=== PATIENT | female | born 1980 | race American Indian/Alaskan Native ===

== ENCOUNTER 2021-03-11 16:38 | Emergency (ER) | payer SELFPAY ==
[2021-03-11 17:27] VITALS: BP 160/83
--- NOTE | 2021-03-11 17:45 | Emergency Department Report ---
ED General Adult HPI - General Chief complaint: Extremity Problem,Nontraumatic Stated complaint: BACK AND KNEE PAIN Time Seen by Provider: 03/11/21 17:35 Source: patient Mode of arrival: Ambulatory Limitations: No Limitations - History of Present Illness Initial comments: Patient is 40 years old female, morbidly obese with a BMI of 67.4. Patient presented to the ER complaining of bilateral knee pain and lower back pain. Patient stated that she started walking to reduce her weight. Patient stated that she experienced pain mostly after she finished walking. Patient denied any recent injury. No focal weakness numbness or tingling sensation. No bowel or bladder incontinence. Patient denied any chest pain or shortness of breath. - Related Data Allergies Allergy/AdvReac Type Severity Reaction Status Date / Time ibuprofen Allergy Unknown Verified 03/11/21 17:23 Penicillins Allergy Unknown Verified 03/11/21 17:23 sulfamethoxazole Allergy Unknown Verified 03/11/21 17:23 [From Bactrim] trimethoprim [From Bactrim] Allergy Unknown Verified 03/11/21 17:23 ED Review of Systems ROS: Stated complaint: BACK AND KNEE PAIN Other details as noted in HPI Comment: All other systems reviewed and negative Constitutional: denies: chills, fever Respiratory: denies: cough, shortness of breath, SOB with exertion, SOB at rest Cardiovascular: denies: chest pain, palpitations Gastrointestinal: denies: abdominal pain, nausea, vomiting Musculoskeletal: back pain, arthralgia, myalgia Neurological: denies: headache, weakness, numbness, paresthesias, confusion, abnormal gait ED Past Medical Hx - Past Medical History Previous Medical History?: Yes Hx Hypertension: Yes Hx Congestive Heart Failure: Yes Hx Asthma: Yes - Surgical History Past Surgical History?: No ED Physical Exam - General Limitations: No Limitations General appearance: alert, in no apparent distress - Head Head exam: Present: atraumatic, normocephalic, normal inspection - Eye Eye exam: Present: normal appearance, PERRL - ENT ENT exam: Present: normal exam, normal orophraynx, mucous membranes moist - Neck Neck exam: Present: normal inspection, full ROM. Absent: tenderness, meningismus - Respiratory Respiratory exam: Present: normal lung sounds bilaterally - Cardiovascular Cardiovascular Exam: Present: regular rate, normal rhythm, normal heart sounds - GI/Abdominal GI/Abdominal exam: Present: soft, normal bowel sounds. Absent: distended, tenderness, guarding, rebound, rigid, organomegaly, mass, bruit, pulsatile mass, hernia - Extremities Exam Extremities exam: Present: normal inspection, full ROM, normal capillary refill. Absent: pedal edema, calf tenderness - Back Exam Back exam: Present: normal inspection, full ROM. Absent: CVA tenderness (R), CVA tenderness (L) - Neurological Exam Neurological exam: Present: alert, oriented X3, CN II-XII intact, normal gait, reflexes normal. Absent: motor sensory deficit - Psychiatric Psychiatric exam: Present: normal mood - Skin Skin exam: Present: warm, intact, normal color ED Course Vital Signs 03/11/21 17:25 Temperature 98 F Pulse Rate 112 H Respiratory 16 Rate Blood Pressure 160/83 [Left] O2 Sat by Pulse 100 Oximetry ED Medical Decision Making - Medical Decision Making Patient is 40 years old female, morbidly obese with a BMI of 67.4. Patient presented to the ER complaining of bilateral knee pain and lower back pain. Patient stated that she started walking to reduce her weight. Patient stated that she experienced pain mostly after she finished walking. Patient denied any recent injury. No focal weakness numbness or tingling sensation. No bowel or bladder incontinence. Patient denied any chest pain or shortness of breath. Patient symptoms going well with osteoarthritis. I counseled the patient about not walking for long distance and started gradually and then increase your distance. I also advised her about swimming. Patient given prescription for Ultram and Zofran and advised to follow-up with her primary care physician in the next 2 to 3 days and to return to the ER if she develop any new symptoms. Critical care attestation.: If time is entered above; I have spent that time in minutes in the direct care of this critically ill patient, excluding procedure time. ED Disposition Clinical Impression: Acute bilateral knee pain, Exacerbation of osteoarthritis Disposition: 01 HOME / SELF CARE / HOMELESS Is pt being admited?: No Condition: Stable Instructions: Acute Knee Pain, Adult, Arthritis, [id number] Referrals: PRIMARY CARE, [Referring] - 3-5 Days Forms: Work/School Release Form(ED)
== END 2021-03-11 19:02 | disposition home or self-care (01) ==
LOC: ED 16:38
DX: M19.90 Unspecified osteoarthritis, unspecified site (principal); I11.0 Hypertensive heart disease with heart failure; I50.9 Heart failure, unspecified; J45.909 Unspecified asthma, uncomplicated
CPT/HCPCS: 99282

== ENCOUNTER 2021-04-25 12:52 | Emergency (ER) | payer SELFPAY ==
[2021-04-25 13:05] VITALS: BP 152/81
--- NOTE | 2021-04-25 13:12 | Emergency Department Report ---
- General Chief Complaint: Upper Respiratory Infection Stated Complaint: DRY COUGH, ARTHRITIS Time Seen by Provider: 04/25/21 13:05 Source: patient Mode of arrival: Ambulatory Limitations: No Limitations - History of Present Illness Initial Comments: Patient is a 40-year-old female presents emergency room complaints of a cough that began 4 to 5 days ago. She has associated yellow mucus production. She states that she has been taking Robitussin and cough drops without much relief. She states that she gets pain in her sides after frequent coughing. She states that occasionally she has an episode of posttussive emesis but otherwise has no vomiting. She denies any diarrhea, fever, leg swelling, hemoptysis, shortness of breath. Past medical history of asthma, bronchitis, CHF. Allergy to ibuprofen, penicillin, Bactrim. She is a non-smoker. She denies any recent travel or known sick contacts. She has not been vaccinated for COVID-19. - Related Data Previous Rx's Medication Instructions Recorded Last Taken Type Ondansetron [Zofran Odt] 4 mg PO Q8HR PRN #14 tab.rapdis 03/11/21 Unknown Rx traMADoL [Ultram 50 MG tab] 50 mg PO Q4HR PRN #14 tablet 03/11/21 Unknown Rx Albuterol Sulfate [Proventil Hfa] 1 puff IH TID PRN #1 hfa.aer.ad 04/25/21 Unknown Rx Benzonatate [Tessalon Perles] 100 mg PO Q8HR PRN #12 capsule 04/25/21 Unknown Rx guaiFENesin ER [Mucinex ER] 600 mg PO Q12H 7 Days #14 tablet.er 04/25/21 Unknown Rx predniSONE [Deltasone] 40 mg PO QDAY 5 Days #10 tab 04/25/21 Unknown Rx Allergies Allergy/AdvReac Type Severity Reaction Status Date / Time ibuprofen Allergy Unknown Verified 04/25/21 13:05 Penicillins Allergy Unknown Verified 04/25/21 13:05 sulfamethoxazole Allergy Unknown Verified 04/25/21 13:05 [From Bactrim] trimethoprim [From Bactrim] Allergy Unknown Verified 04/25/21 13:05 ED Review of Systems ROS: Stated complaint: DRY COUGH, ARTHRITIS Other details as noted in HPI Comment: All other systems reviewed and negative ED Past Medical Hx - Past Medical History Hx Hypertension: Yes Hx Congestive Heart Failure: Yes Hx Asthma: Yes - Medications Home Medications: Home Medications Medication Instructions Recorded Confirmed Last Taken Type Ondansetron [Zofran Odt] 4 mg PO Q8HR PRN #14 tab.rapdis 03/11/21 Unknown Rx traMADoL [Ultram 50 MG tab] 50 mg PO Q4HR PRN #14 tablet 03/11/21 Unknown Rx Albuterol Sulfate [Proventil Hfa] 1 puff IH TID PRN #1 hfa.aer.ad 04/25/21 Unknown Rx Benzonatate [Tessalon Perles] 100 mg PO Q8HR PRN #12 capsule 04/25/21 Unknown Rx guaiFENesin ER [Mucinex ER] 600 mg PO Q12H 7 Days #14 tablet.er 04/25/21 Unknown Rx predniSONE [Deltasone] 40 mg PO QDAY 5 Days #10 tab 04/25/21 Unknown Rx ED Physical Exam - General Limitations: No Limitations General appearance: alert, in no apparent distress - Head Head exam: Present: atraumatic, normocephalic - Eye Eye exam: Present: normal appearance - ENT ENT exam: Present: mucous membranes moist - Respiratory Respiratory exam: Present: normal lung sounds bilaterally. Absent: respiratory distress, wheezes, rales, rhonchi, stridor, chest wall tenderness, accessory muscle use, decreased breath sounds, prolonged expiratory - Cardiovascular Cardiovascular Exam: Present: regular rate, normal rhythm, normal heart sounds. Absent: systolic murmur, diastolic murmur, rubs, gallop - Neurological Exam Neurological exam: Present: alert, oriented X3 - Psychiatric Psychiatric exam: Present: normal affect, normal mood - Skin Skin exam: Present: warm, dry, intact ED Course Vital Signs 04/25/21 13:05 Temperature 98.9 F Pulse Rate 92 H Respiratory 18 Rate Blood Pressure 152/81 [Left] O2 Sat by Pulse 99 Oximetry ED Medical Decision Making - Radiology Data Radiology results: report reviewed Ordering Physician: TEN ROSS Date of Service: 04/25/21 Procedure(s): XR chest routine 2V Accession Number(s): [id number] cc: TEN ROSS Fluoro Time In Minutes: CHEST 2 VIEWS INDICATION / CLINICAL INFORMATION: cough with mucus production. COMPARISON: None available. FINDINGS: SUPPORT DEVICES: None. HEART / MEDIASTINUM: No significant abnormality. LUNGS / PLEURA: No significant pulmonary or pleural abnormality. No pneumothorax. ADDITIONAL FINDINGS: No significant additional findings. IMPRESSION: 1. No acute findings. Signer Name: Raffi Luu MD Signed: 04/25/2021 1:57 PM Workstation Name: [id number] Transcribed By: Dictated By: Raffi Luu MD Electronically Authenticated By: Raffi Luu MD Signed Date/Time: 04/25/211356 DD/ 56 TD/TT: Print - Medical Decision Making Patient is a 40-year-old female presents emergency room complaints of a cough that began 4 to 5 days ago. She has associated yellow mucus production. She states that she has been taking Robitussin and cough drops without much relief. She states that she gets pain in her sides after frequent coughing. She states that occasionally she has an episode of posttussive emesis but otherwise has no vomiting. She denies any diarrhea, fever, leg swelling, hemoptysis, shortness of breath. Past medical history of asthma, bronchitis, CHF. Allergy to ibuprofen, penicillin, Bactrim. She is a non-smoker. She denies any recent travel or known sick contacts. She has not been vaccinated for COVID-19. Vitals are stable. Breath sounds are clear bilaterally, no wheezing, no rales, no rhonchi. Chest x-ray 1. No acute findings. Symptoms could be related to acute bronchitis versus URI. Patient given prescription for medication. Advised patientPlease take medication as prescribed. Increase your fluid intake. Follow-up with your primary care doctor. Return to emergency room immediately for any new or worsening symptoms. Discussed with patient to get outpatient COVID-19 testing and if positive self quarantine for 10 days from onset of symptoms. Critical care attestation.: If time is entered above; I have spent that time in minutes in the direct care of this critically ill patient, excluding procedure time. ED Disposition Clinical Impression: Acute bronchitis Qualifiers: Bronchitis organism: unspecified organism Qualified Code(s): J20.9 - Acute bronchitis, unspecified Disposition: 01 HOME / SELF CARE / HOMELESS Is pt being admited?: No Does the pt Need Aspirin: No Condition: Stable Instructions: Acute Bronchitis, Adult, [id number], Acute Bronchitis (ED) Additional Instructions: Please take medication as prescribed. Increase your fluid intake. Follow-up with your primary care doctor. Return to emergency room immediately for any new or worsening symptoms. Prescriptions: predniSONE [Deltasone] 40 mg PO QDAY 5 Days #10 tab guaiFENesin ER [Mucinex ER] 600 mg PO Q12H 7 Days #14 tablet.er Albuterol Sulfate [Proventil Hfa] 1 puff IH TID PRN #1 hfa.aer.ad PRN Reason: shortness of breath/wheezing Benzonatate [Tessalon Perles] 100 mg PO Q8HR PRN #12 capsule PRN Reason: cough Referrals: SANDRA PETTIT MD [Staff Physician] - 2-3 Days [facility] [Provider Group] - 2-3 Days Forms: Work/School Release Form(ED) Time of Disposition: 14:25 Print Language: [place]
--- NOTE | 2021-04-25 14:02 | XRay Report ---
CHEST 2 VIEWS INDICATION / CLINICAL INFORMATION: cough with mucus production. COMPARISON: None available. FINDINGS: SUPPORT DEVICES: None. HEART / MEDIASTINUM: No significant abnormality. LUNGS / PLEURA: No significant pulmonary or pleural abnormality. No pneumothorax. ADDITIONAL FINDINGS: No significant additional findings. IMPRESSION: 1. No acute findings. Signer Name: Raffi Luu MD Signed: 04/25/2021 1:57 PM Workstation Name: [id number]
== END 2021-04-25 15:17 | disposition home or self-care (01) ==
LOC: ED 12:52
DX: J20.9 Acute bronchitis, unspecified (principal); I11.0 Hypertensive heart disease with heart failure; I50.9 Heart failure, unspecified; J45.909 Unspecified asthma, uncomplicated
CPT/HCPCS: 71046; 99283

== ENCOUNTER 2021-05-13 14:54 | Emergency (ER) | payer SELFPAY ==
[2021-05-13 15:11] VITALS: BP 147/93
[2021-05-13] MEDS ORDERED: HYDROcodone/ACETAMINOPHEN 5-325 MG TAB PO ONE (15:31)
[2021-05-13] MEDS ORDERED: ONDANSETRON 4 MG ODT TAB PO ONE (15:31)
--- NOTE | 2021-05-13 15:38 | Emergency Department Report ---
ED General Adult HPI - General Chief complaint: Abdominal Pain Stated complaint: ABD CRAMPS Time Seen by Provider: 05/13/21 15:25 Source: patient, family Mode of arrival: Wheelchair Limitations: Physical Limitation - History of Present Illness Initial comments: Patient is a 40-year-old female presents emergency room complaints of lower abdominal cramping that began yesterday. She states that her menstrual cycle just began yesterday. She denies any heavy bleeding or passing clots. She denies any fever, nausea, vomiting, diarrhea, dysuria, abnormal vaginal discharge. She does not have a PULLEY WORKER. She states that her primary care doctor typically does her female examinations. She has an allergy to ibuprofen, penicillin, Bactrim. She states that she takes tramadol at home for her chronic pain. - Related Data Previous Rx's Medication Instructions Recorded Last Taken Type Ondansetron [Zofran Odt] 4 mg PO Q8HR PRN #14 tab.rapdis 03/11/21 Unknown Rx traMADoL [Ultram 50 MG tab] 50 mg PO Q4HR PRN #14 tablet 03/11/21 Unknown Rx Albuterol Sulfate [Proventil Hfa] 1 puff IH TID PRN #1 hfa.aer.ad 04/25/21 Unknown Rx Benzonatate [Tessalon Perles] 100 mg PO Q8HR PRN #12 capsule 04/25/21 Unknown Rx guaiFENesin ER [Mucinex ER] 600 mg PO Q12H 7 Days #14 tablet.er 04/25/21 Unknown Rx predniSONE [Deltasone] 40 mg PO QDAY 5 Days #10 tab 04/25/21 Unknown Rx Allergies Allergy/AdvReac Type Severity Reaction Status Date / Time ibuprofen Allergy Unknown Verified 04/25/21 13:05 Penicillins Allergy Unknown Verified 04/25/21 13:05 sulfamethoxazole Allergy Unknown Verified 04/25/21 13:05 [From Bactrim] trimethoprim [From Bactrim] Allergy Unknown Verified 04/25/21 13:05 ED Review of Systems ROS: Stated complaint: ABD CRAMPS Other details as noted in HPI Comment: All other systems reviewed and negative ED Past Medical Hx - Past Medical History Previous Medical History?: Yes Hx Hypertension: Yes Hx Congestive Heart Failure: Yes Hx Asthma: Yes - Medications Home Medications: Home Medications Medication Instructions Recorded Confirmed Last Taken Type Ondansetron [Zofran Odt] 4 mg PO Q8HR PRN #14 tab.rapdis 03/11/21 Unknown Rx traMADoL [Ultram 50 MG tab] 50 mg PO Q4HR PRN #14 tablet 03/11/21 Unknown Rx Albuterol Sulfate [Proventil Hfa] 1 puff IH TID PRN #1 hfa.aer.ad 04/25/21 Unknown Rx Benzonatate [Tessalon Perles] 100 mg PO Q8HR PRN #12 capsule 04/25/21 Unknown R x guaiFENesin ER [Mucinex ER] 600 mg PO Q12H 7 Days #14 tablet.er 04/25/21 Unknown Rx predniSONE [Deltasone] 40 mg PO QDAY 5 Days #10 tab 04/25/21 Unknown Rx ED Physical Exam - General Limitations: Physical Limitation General appearance: alert, in no apparent distress - Head Head exam: Present: atraumatic, normocephalic - Eye Eye exam: Present: normal appearance - ENT ENT exam: Present: mucous membranes moist - Respiratory Respiratory exam: Present: normal lung sounds bilaterally. Absent: respiratory distress, wheezes, rales, rhonchi, stridor, chest wall tenderness, accessory muscle use, decreased breath sounds, prolonged expiratory - Cardiovascular Cardiovascular Exam: Present: regular rate, normal rhythm, normal heart sounds. Absent: systolic murmur, diastolic murmur, rubs, gallop - GI/Abdominal GI/Abdominal exam: Present: soft, normal bowel sounds. Absent: distended, tenderness, guarding, rebound, rigid - Neurological Exam Neurological exam: Present: alert, oriented X3 - Psychiatric Psychiatric exam: Present: normal affect, normal mood - Skin Skin exam: Present: warm, dry, intact ED Course Vital Signs 05/13/21 15:05 Temperature 98.3 F Pulse Rate 88 Respiratory 20 Rate Blood Pressure 147/93 O2 Sat by Pulse 98 Oximetry ED Medical Decision Making - Medical Decision Making Patient is a 40-year-old female presents emergency room complaints of lower abdominal cramping that began yesterday. She states that her menstrual cycle just began yesterday. She denies any heavy bleeding or passing clots. She denies any fever, nausea, vomiting, diarrhea, dysuria, abnormal vaginal discharge. She does not have a PULLEY WORKER. She states that her primary care doctor typically does her female examinations. She has an allergy to ibuprofen, penicillin, Bactrim. She states that she takes tramadol at home for her chronic pain. VSS. Patient has no abdominal tenderness on exam, no guarding, no rebound, no rigidity, nor bodies, no peritoneal signs. She denies any heavy bleeding, she denies passing clots, she has no hypotension, no tachycardia. Patient given medications while in the emergency department with improvement of her symptoms. discussed the importance of outpatient PULLEY WORKER follow-up for evaluation of her dysmenorrhea. Advised patient Please follow-up with PULLEY WORKER. Return to emergency room for any new or worsening symptoms. Critical care attestation.: If time is entered above; I have spent that time in minutes in the direct care of this critically ill patient, excluding procedure time. ED Disposition Clinical Impression: Dysmenorrhea Disposition: 01 HOME / SELF CARE / HOMELESS Is pt being admited?: No Does the pt Need Aspirin: No Condition: Stable Instructions: Dysmenorrhea, Abdominal Pain (ED) Additional Instructions: Please follow-up with PULLEY WORKER. Return to emergency room for any new or worsening symptoms. Referrals: EVELIO MEI MD [Staff Physician] - 3-5 Days Time of Disposition: 15:37 Print Language: PASHTO
== END 2021-05-13 16:31 | disposition home or self-care (01) ==
LOC: ED 14:54
DX: N94.6 Dysmenorrhea, unspecified (principal); I11.0 Hypertensive heart disease with heart failure; I50.9 Heart failure, unspecified; J45.909 Unspecified asthma, uncomplicated; Z88.0 Allergy status to penicillin; Z88.2 Allergy status to sulfonamides; Z88.8 Allergy status to other drugs, medicaments and biological substances; Z79.899 Other long term (current) drug therapy
CPT/HCPCS: 99282; J3490; Q0162

== ENCOUNTER 2021-12-26 09:44 | Emergency (ER) | payer SELFPAY ==
[2021-12-26] MEDS ORDERED: ONDANSETRON 4 MG/2 ML INJ IV ONE (13:04)
[2021-12-26] MEDS ORDERED: MORPHINE 4 MG/1 ML INJ IV ONE (13:04)
[2021-12-26 13:45] LABS: Mucus,Urine FEW /HPF
[2021-12-26 14:01] LABS: Bilirubin,Urine Negative (Negative); Blood,Urine 1+ (Negative); Color,Urine Straw (Yellow); Protein,Urine <15 mg/dL mg/dL (Negative); Urobilinogen,Urine < 2.0 mg/dL (<2.0)
[2021-12-26 14:57] LABS: Basophils % (Auto) 0.4 % (0.0-1.8); Eosinophils # (Auto) 0.2 K/mm3 (0.0-0.4); Eosinophils % (Auto) 2.1 % (0.0-4.3); Hemoglobin 12.6 gm/dl (10.1-14.3); Lymphocytes # (Auto) 1.7 K/mm3 (1.2-5.4); Lymphocytes % (Auto) 23.5 % (13.4-35.0); Mean Corpuscular HGB Conc 32 % (30-34); Mean Corpuscular Volume 91 fl (79-97); Monocytes # (Auto) 0.7 K/mm3 (0.0-0.8); Monocytes % (Auto) 8.9 % (0.0-7.3); Platelet Count 208 K/mm3 (140-440); Red Blood Count 4.29 M/mm3 (3.65-5.03); Red Cell Distribution Width 14.1 % (13.2-15.2)
[2021-12-26 15:14] LABS: Alanine Aminotransferase 9 units/L (7-56); Albumin 3.6 g/dL (3.9-5); BUN/Creatinine Ratio 15; Blood Urea Nitrogen 17 mg/dL (7-17); Calcium 9.1 mg/dL (8.4-10.2); Hemolysis Index 3
--- NOTE | 2021-12-26 17:33 | Cat Scan Report ---
CT ABDOMEN AND PELVIS WITHOUT CONTRAST INDICATION / CLINICAL INFORMATION: LLQ / Left flank pain. TECHNIQUE: Axial CT images were obtained through the abdomen and pelvis without IV contrast. All CT scans at this location are performed using CT dose reduction for ALARA by means of automated exposure control. COMPARISON: None available. FINDINGS: LOWER CHEST: No significant abnormality. AORTA / ARTERIES: No significant abnormality. IVC / VEINS: No significant abnormality. LYMPH NODES: No significant adenopathy. COLON: Diverticulosis without acute inflammation. APPENDIX: No significant abnormality. STOMACH / SMALL BOWEL: No significant abnormality. PERITONEUM: No free fluid. No free air. No fluid collection. LIVER: No significant abnormality. GALLBLADDER: No significant abnormality. BILE DUCTS: No significant abnormality. PANCREAS: No significant abnormality. SPLEEN: No significant abnormality. ADRENALS: No significant abnormality. RIGHT KIDNEY / URETER: Multiple stones measuring up to 7 mm. No hydronephrosis. LEFT KIDNEY / URETER: Within the left ureteropelvic junction there is a 7 mm stone which causes mild hydronephrosis and perinephric fat stranding. There are also several intrarenal stones measuring up t o 9 mm. URINARY BLADDER: No significant abnormality. REPRODUCTIVE ORGANS: Degenerated calcified fibroid within the uterus measuring up to 10.6 cm. SKELETAL SYSTEM: Scattered degeneration. ADDITIONAL FINDINGS: None. IMPRESSION: 1. There is a 7 mm stone in the left ureteropelvic junction causing mild hydronephrosis and perinephr ic fat stranding. 2. Multiple intrarenal stones within both kidneys. No hydronephrosis of the right kidney. 3. Degenerated calcified uterine fibroid measuring up to 10.6 cm. 4. Diverticulosis without diverticulitis. Signer Name: Johnny House DO Signed: 12/26/2021 5:29 PM Workstation Name: [id number]
--- NOTE | 2021-12-26 18:05 | Emergency Department Report ---
ED Abdominal Pain HPI - General Chief Complaint: Back Pain/Injury Stated Complaint: LBP AND LEFT SIDE PAIN Source: patient Mode of arrival: Ambulatory Limitations: No Limitations - History of Present Illness Initial Comments: Patient is a 41-year-old -[place]ub[place] female with a history of hypertension, and insulin-dependent diabetes and morbid obesity presents to the ED with complaint of acute onset persistent left flank pain that radiates to the left lower quadrant area with nausea and vomiting intermittently for the last 1 week. Patient states that the pain got worse in the last 3 days. Patient denies fever, chills, diarrhea, dysuria, urinary frequency and urgency, vaginal bleeding, vaginal discharge, MD Complaint: abdominal pain (LLQ pain), flank pain (left ), other (nausea and vomiting) -: week(s) (1) Location: LLQ, L flank Radiation: LLQ, L flank Migration to: no migration Severity: severe Severity scale (0 -10): 8 Quality: aching, sharp Consistency: constant Improves With: nothing Worsens With: movement Associated Symptoms: denies other symptoms, nausea, vomiting. denies: diarrhea, fever, chills, constipation, dysuria, hematemesis, hematochezia, melena, anorexia, syncope - Related Data Previous Rx's Medication Instructions Recorded Last Taken Type Ondansetron [Zofran Odt] 4 mg PO Q8HR PRN #14 tab.rapdis 03/11/21 Unknown Rx Albuterol Sulfate [Proventil Hfa] 1 puff IH TID PRN #1 hfa.aer.ad 04/25/21 Unknown Rx Benzonatate [Tessalon Perles] 100 mg PO Q8HR PRN #12 capsule 04/25/21 Unknown Rx guaiFENesin ER [Mucinex ER] 600 mg PO Q12H 7 Days #14 tablet.er 04/25/21 Unknown Rx predniSONE [Deltasone] 40 mg PO QDAY 5 Days #10 tab 04/25/21 Unknown Rx Ciprofloxacin HCl 500 mg PO Q12H #20 tab 12/26/21 Unknown Rx Ondansetron [Zofran Odt] 4 mg PO Q6HR PRN #20 tab.rapdis 12/26/21 Unknown Rx Tamsulosin [Flomax] 0.4 mg PO QDAY #15 cap 12/26/21 Unknown Rx traMADoL [Ultram 50 MG tab] 50 mg PO Q4HR PRN #14 tablet 12/26/21 Unknown Rx Allergies Allergy/AdvReac Type Severity Reaction Status Date / Time ibuprofen Allergy Unknown Verified 04/25/21 13:05 Penicillins Allergy Unknown Verified 04/25/21 13:05 sulfamethoxazole Allergy Unknown Verified 04/25/21 13:05 [From Bactrim] trimethoprim [From Bactrim] Allergy Unknown Verified 04/25/21 13:05 ED Review of Systems ROS: Stated complaint: LBP AND LEFT SIDE PAIN Other details as noted in HPI Constitutional: denies: chills, fever Eyes: denies: eye pain, eye discharge, vision change ENT: denies: ear pain, throat pain Respiratory: denies: cough, shortness of breath, wheezing Cardiovascular: denies: chest pain, palpitations Endocrine: no symptoms reported Gastrointestinal: abdominal pain (Left lower quadrant and left flank pain), nausea, vomiting. denies: diarrhea Genitourinary: denies: urgency, dysuria, discharge Musculoskeletal: back pain (Low back pain). 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 - Social History Smoking Status: Never Smoker - Medications Home Medications: Home Medications Medication Instructions Recorded Confirmed Last Taken Type Ondansetron [Zofran Odt] 4 mg PO Q8HR PRN #14 tab.rapdis 03/11/21 Unknown Rx Albuterol Sulfate [Proventil Hfa] 1 puff IH TID PRN #1 hfa.aer.ad 04/25/21 Unknown Rx Benzonatate [Tessalon Perles] 100 mg PO Q8HR PRN #12 capsule 04/25/21 Unknown Rx guaiFENesin ER [Mucinex ER] 600 mg PO Q12H 7 Days #14 tablet.er 04/25/21 Unknown Rx predniSONE [Deltasone] 40 mg PO QDAY 5 Days #10 tab 04/25/21 Unknown Rx Ciprofloxacin HCl 500 mg PO Q12H #20 tab 12/26/21 Unknown Rx Ondansetron [Zofran Odt] 4 mg PO Q6HR PRN #20 tab.rapdis 12/26/21 Unknown Rx Tamsulosin [Flomax] 0.4 mg PO QDAY #15 cap 12/26/21 Unknown Rx traMADoL [Ultram 50 MG tab] 50 mg PO Q4HR PRN #14 tablet 12/26/21 Unknown Rx ED Physical Exam - General Limitations: No Limitations General appearance: alert, in no apparent distress, obese - Head Head exam: Present: atraumatic, normocephalic, normal inspection - Eye Eye exam: Present: normal appearance, PERRL, EOMI - ENT ENT exam: Present: normal exam, normal orophraynx, mucous membranes moist, TM's normal bilaterally, normal external ear exam - Neck Neck exam: Present: normal inspection, full ROM - Respiratory Respiratory exam: Present: normal lung sounds bilaterally. Absent: respiratory distress, wheezes, chest wall tenderness, decreased breath sounds, prolonged exp iratory - Cardiovascular Cardiovascular Exam: Present: regular rate, normal rhythm, normal heart sounds. Absent: systolic murmur, diastolic murmur, rubs, gallop - GI/Abdominal GI/Abdominal exam: Present: soft, tenderness (Palpable left flank and left lower quadrant tenderness), normal bowel sounds. Absent: guarding, rebound, hyperactive bowel sounds, hypoactive bowel sounds, organomegaly, bruit, pulsatile mass - Extremities Exam Extremities exam: Present: normal inspection, full ROM, normal capillary refill. Absent: tenderness - Back Exam Back exam: Present: normal inspection, full ROM, tenderness (Palpable lumbosacral paraspinal musculoskeletal tenderness), muscle spasm, paraspinal tenderness. Absent: CVA tenderness (L), vertebral tenderness - Neurological Exam Neurological exam: Present: alert, oriented X3, CN II-XII intact, normal gait, reflexes normal - Psychiatric Psychiatric exam: Present: normal affect, normal mood - Skin Skin exam: Present: warm, dry, intact, normal color. Absent: rash ED Course Vital Signs 12/26/21 12/26/21 10:21 13:21 Temperature 98.9 F Pulse Rate 87 82 Respiratory 18 20 Rate Blood Pressure 131/74 Blood Pressure 161/89 [Right] O2 Sat by Pulse 96 98 Oximetry ED Medical Decision Making - Lab Data Result diagrams: 12/26/21 14:36 12/26/21 14:36 - Radiology Data Radiology results: report reviewed, image reviewed [facility] [address] [place] [address] Cat Scan Report Signed Patient: SHARON COFFEY MR#: [id number] : 1980 Acct:[id number] Age/Sex: 41 / F ADM Date: 12/26/21 Loc: ED Attending Dr: Ordering Physician: TEN REEVES Date of Service: 12/26/21 Procedure(s): CT abdomen pelvis wo con Accession Number(s): [id number] cc: TEN REEVES CT ABDOMEN AND PELVIS WITHOUT CONTRAST INDICATION / CLINICAL INFORMATION: LLQ / Left flank pain. TECHNIQUE: Axial CT images were obtained through the abdomen and pelvis without IV contrast. All CT scans at this location are performed using CT dose reduction for ALARA by means of automated exposure control. COMPARISON: None available. FINDINGS: LOWER CHEST: No significant abnormality. AORTA / ARTERIES: No significant abnormality. IVC / VEINS: No significant abnormality. LYMPH NODES: No significant adenopathy. COLON: Diverticulosis without acute inflammation. APPENDIX: No significant abnormality. STOMACH / SMALL BOWEL: No significant abnormality. PERITONEUM: No free fluid. No free air. No fluid collection. LIVER: No significant abnormality. GALLBLADDER: No significant abnormality. BILE DUCTS: No significant abnormality. PANCREAS: No significant abnormality. SPLEEN: No significant abnormality. ADRENALS: No significant abnormality. RIGHT KIDNEY / URETER: Multiple stones measuring up to 7 mm. No hydronephrosis. LEFT KIDNEY / URETER: Within the left ureteropelvic junction there is a 7 mm stone which causes mild hydronephrosis and perinephric fat stranding. There are also several intrarenal stones measuring up to 9 mm. URINARY BLADDER: No significant abnormality. REPRODUCTIVE ORGANS: Degenerated calcified fibroid within the uterus measuring up to 10.6 cm. SKELETAL SYSTEM: Scattered degeneration. ADDITIONAL FINDINGS: None. IMPRESSION: 1. There is a 7 mm stone in the left ureteropelvic junction causing mild hydronephrosis and perinephric fat stranding. 2. Multiple intrarenal stones within both kidneys. No hydronephrosis of the right kidney. 3. Degenerated calcified uterine fibroid measuring up to 10.6 cm. 4. Diverticulosis without diverticulitis. Signer Name: Johnny Santillan DO Signed: 12/26/2021 5:29 PM Workstation Name: [email or web address] Transcribed By: NS Dictated By: JOHNNY SANTILLAN DO Electronically Authenticated By: JOHNNY SANTILLAN DO Signed Date/Time: 12/26/211728 DD/ 22 TD/TT: - Medical Decision Making This is a 41-year-old -Cub[place] female with a history of hypertension, and insulin-dependent diabetes and morbid obesity presents to the ED with complaint of acute onset persistent left flank pain that radiates to the left lower quadrant area with nausea and vomiting intermittently for the last 1 week. Patient states that the pain got worse in the last 3 days. In the ED, patient is alert and oriented x3 and is not in any distress. Patient was treated for pain in the ED. Lab test results were reviewed and are all nonactionable. Abdomen pelvis CT without contrast showed a 7 mm stone in the left ureteropelvic junction causing mild hydronephrosis and perinephric fat stranding. In addition, it also showed multiple intrarenal stones within both kidneys. No hydronephrosis of the right kidney. In addition, it also showed a degenerated calcified uterine fibroid measuring up to 10.6 cm. The imaging report also showed a diverticulosis without diverticulitis. On reevaluation, patient's pain is well controlled medication. Patient will discharge home on medication for p ain and given a referral to the urologist Dr. Canas for follow-up. Patient was advised to contact Dr. Beaver's office first thing in the morning on December 27, 2021 to schedule a follow-up appointment. Patient was advised to return to the ED immediately if symptoms get worse. - Differential Diagnosis UTI; pyelonephritis; diverticulitis; kidney stone; uterine fibroid; ovarian Critical care attestation.: If time is entered above; I have spent that time in minutes in the direct care of this critically ill patient, excluding procedure time. ED Disposition Clinical Impression: Calculus of left kidney, Acute abdominal pain in left flank, Nausea and vomiting in adult patient Disposition: HOME / SELF CARE / HOMELESS Is pt being admited?: No Does the pt Need Aspirin: No Condition: Stable Instructions: Kidney Stones, [id number], Flank Pain, Adult, [id number], Renal Colic, [id number], Nausea and Vomiting, Adult, [id number], Abdominal Pain, Adult, [id number] Additional Instructions: All lab test results were reviewed and are all nonactionable. The abdomen pelvis CT scan without contrast showed a 7 mm stone in the UVJ area with mild hydronephrosis. Therefore take medications with food, drink plenty of fluids and follow-up with your urologist Dr. Beaver in 3 to 5 days for reevaluation. Return to the ED immediately if symptoms get worse. Prescriptions: Ciprofloxacin HCl 500 mg PO Q12H #20 tab Tamsulosin [Flomax] 0.4 mg PO QDAY #15 cap traMADoL [Ultram 50 MG tab] 50 mg PO Q4HR PRN #14 tablet PRN Reason: Pain Ondansetron [Zofran Odt] 4 mg PO Q6HR PRN #20 tab.rapdis PRN Reason: Nausea Referrals: SANDRA PETTIT MD [Primary Care Provider] - 3-5 Days ELVIRA BEAVER MD [Staff Physician] - 3-5 Days Forms: Work/School Release Form(ED) Time of Disposition: 17:57 Print Language: CANADIAN
[2021-12-26] MEDS ORDERED: TAMSULOSIN 0.4 MG CAP PO ONE (18:20)
[2021-12-26 18:22] VITALS: BP 142/88
== END 2021-12-26 18:37 | disposition home or self-care (01) ==
LOC: ED 09:44
DX: N20.0 Calculus of kidney (principal); R10.32 Left lower quadrant pain; R11.2 Nausea with vomiting, unspecified; I11.9 Hypertensive heart disease without heart failure; I50.9 Heart failure, unspecified; J45.909 Unspecified asthma, uncomplicated; M47.9 Spondylosis, unspecified; Z88.0 Allergy status to penicillin; Z88.2 Allergy status to sulfonamides; Z88.6 Allergy status to analgesic agent
CPT/HCPCS: 36415; 74176; 80053; 81001; 84703; 85025; 96374; 96375; 99284; J2270; J2405